=== PATIENT | female | born 1930 | race Caucasian/White ===

== ENCOUNTER 2016-11-22 21:02 | Observation (INO) | payer BC ==
[~2016-11-22] VITALS: Ht 147.3 cm; Wt 72.2 kg
[2016-11-22] MEDS ORDERED: SODIUM CHLORIDE 0.9% 500ML 500 ML IV STA (21:07)
[2016-11-22 21:17] LABS: BASO % 0.6 %; BASO ABS # 0.03 K/uL (0-0.2); COMPLETE YES; EOS % 1.9 %; HEMATOCRIT 40.9 % (37-47); IG% 0.2 %; LYMPH % 44.3 %; LYMPH ABS # 2.15 K/uL (1.2-3.4); MEAN CELL VOLUME 98.1 fL (80-100); MEAN CORPUSCULAR HEMOGLOBIN 34.8 pg (25-34); MEAN CORPUSCULAR HGB CONC 35.5 g/dl (32-36); MEAN PLATELET VOLUME 10.4 fL (7.4-10.4); MONO % 12.8 %; NEUT % 40.2 %; PLATELET COUNT 193 K/uL (130-400); RED BLOOD COUNT 4.17 M/uL (4.2-5.4); WHITE BLOOD COUNT 4.85 K/uL (4.8-10.8)
--- NOTE | 2016-11-22 21:28 | EMERGENCY ROOM VISIT NOTE ---
History Report prepared by Lance: Lisseth Jones Under the Supervision of: Dr. Radhames Steward M.D. First contact with patient: 21:07 Stated Complaint: CHEST DISCOMFORT/HEADACHE History of Present Illness The patient is an 86 year old female who presents to the Emergency Room with complaints of a headache that started earlier today. She was brought to the ED via EMS and is visiting the area from [place], for a golf tournament. The patient reports she played 36 holes of golf, then went to eat dinner at the [employer], where her headache worsened. She rates her current discomfort as a 7/10. The patient also reports a "feeling of warmth" that came across her chest while she was in the hotel lobby this evening. She denies any chest pain or shortness of breath and states the feeling of warmth has gone away. She reports she experiences headaches regularly, and states she has followed with Neurologists and Cardiologists and they cannot determine the cause of her headaches. She admits she only ate breakfast this morning, then nothing for lunch or dinner. She reports she drank Pepsi and 2 bottles of water while playing today. She does take daily blood thinners. Source of History: patient Onset: ROAD MENDER Position: head Symptom Intensity: 7/10 Timing: worsening Associated Symptoms: No SOB, No chest pain Review of Systems See HPI for pertinent positives & negatives. A total of 10 systems reviewed and were otherwise negative. Past Medical & Surgical Medical Problems: (1) Burning chest pain (2) Chronic headaches (3) GERD (gastroesophageal reflux disease) (4) Hyperlipemia (5) Hypertension (6) Seasonal allergies Social History Alcohol Use: occasionally Drug Use: none Marital Status: Housing Status: lives with family Occupation Status: retired Current/Historical Medications Scheduled Amlodipine (Norvasc), 2.5 MG PO DAILY Aspirin (Aspirin Ec), 81 MG PO DAILY Cholecalciferol (Vitamin D), 2,000 UNITS PO DAILY Famotidine (Pepcid), 40 MG PO DAILY Irbesartan (Avapro), 150 MG PO DAILY Magnesium (Magnesium 250 mg), 250 MG PO DAILY Multivitamins/Minerals (Mvi With Minerals), 1 TAB PO DAILY Pravastatin Sodium (Pravachol), 1 TAB PO DAILY Riboflavin (B-2), 1 TAB PO DAILY Warfarin Sodium (Coumadin), 4 MG PO 3XWK Warfarin Sodium (Coumadin), 3 MG PO 4XWK Scheduled PRN Cetirizine Hcl (Zyrtec), 10 MG PO DAILY PRN for ALLERGIC REACTION Lorazepam (Ativan), 0.5 MG PO HS PRN for Sleep Allergies Coded Allergies: Adhesives (Verified Allergy, Intermediate, RED SKIN, 11/22/16) Enoxaparin (Verified Adverse Reaction, Severe, ABD HEMMORAGE, 11/22/16) Physical Exam Vital Signs Date Time Temp Pulse Resp B/P Pulse Ox O2 Delivery O2 Flow Rate FiO2 11/22/16 22:35 98 191/84 97 Room Air 11/22/16 22:10 88 20 190/72 97 Room Air 11/22/16 21:36 92 11/22/16 21:13 36.7 89 20 178/77 97 Room Air 11/22/16 21:13 97 Room Air Physical Exam GENERAL: Patient is a healthy-appearing well-nourished HEAD: Normocephalic atraumatic EYES: Ocular movements intact pupils equal and react to light OROPHARYNX mucous membranes are moist no exudates present no erythema or edema present NECK: Supple no nuchal rigidity. No evidence of meningitis or encephalitis on exam. CHEST: Good equal expansion LUNGS: Clear and equal to auscultation CARDIAC: Normal S1 and S2 ABDOMEN: Soft nontender no guarding BACK: No CVA tenderness EXTREMITIES: No pain upon palpation normal muscle strength in all groups no clubbing cyanosis or edema NEURO: Patient is following commands is answering questions appropriately. Alert and oriented x3 Cranial Nerves 2-12 grossly intact Medical Decision & Procedures ER Provider Diagnostic Interpretation: This X-Ray was reviewed and interpreted by myself and the radiologist. CHEST ONE VIEW PORTABLE IMPRESSION: No acute cardiopulmonary findings. Electronically signed by: Jc Bean M.D. 11/22/2016 9:27 PM Laboratory Results 11/22/16 20:47 Red Blood Count 4.17, Mean Corpuscular Volume 98.1, Mean Corpuscular Hemoglobin 34.8, Mean Corpuscular Hemoglobin Concent 35.5, Mean Platelet Volume 10.4, Neutrophils (%) (Auto) 40.2, Lymphocytes (%) (Auto) 44.3, Monocytes (%) (Auto) 12.8, Eosinophils (%) (Auto) 1.9, Basophils (%) (Auto) 0.6, Neutrophils # (Auto ) 1.95, Lymphocytes # (Auto) 2.15, Monocytes # (Auto) 0.62, Eosinophils # (Auto ) 0.09, Basophils # (Auto) 0.03 11/22/16 20:47 Test 11/22/16 20:47 11/22/16 21:35 White Blood Count 4.85 K/uL (4.8-10.8) Red Blood Count 4.17 M/uL (4.2-5.4) Hemoglobin 14.5 g/dL (12.0-16.0) Hematocrit 40.9 % (37-47) Mean Corpuscular Volume 98.1 fL (80-100) Mean Corpuscular Hemoglobin 34.8 pg (25-34) Mean Corpuscular Hemoglobin Concent 35.5 g/dl (32-36) Platelet Count 193 K/uL (130-400) Mean Platelet Volume 10.4 fL (7.4-10.4) Neutrophils (%) (Auto) 40.2 % Lymphocytes (%) (Auto) 44.3 % Monocytes (%) (Auto) 12.8 % Eosinophils (%) (Auto) 1.9 % Basophils (%) (Auto) 0.6 % Neutrophils # (Auto) 1.95 K/uL (1.4-6.5) Lymphocytes # (Auto) 2.15 K/uL (1.2-3.4) Monocytes # (Auto) 0.62 K/uL (0.11-0.59) Eosinophils # (Auto) 0.09 K/uL (0-0.5) Basophils # (Auto) 0.03 K/uL (0-0.2) RDW Standard Deviation 48.1 fL (36.4-46.3) RDW Coefficient of Variation 13.6 % (11.5-14.5) Immature Granulocyte % (Auto) 0.2 % Immature Granulocyte # (Auto) 0.01 K/uL (0.00-0.02) Prothrombin Time 16.4 SECONDS (9.0-12.0) Prothromb Time International Ratio 1.5 (0.9-1.1) Activated Partial Thromboplast Time 31.5 SECONDS (21.0-31.0) Partial Thromboplastin Ratio 1.2 Anion Gap 11.0 mmol/L (3-11) Est Creatinine Clear Calc Drug Dose 41.8 ml/min Estimated GFR () 73.5 Estimated GFR (Non- 63.4 BUN/Creatinine Ratio 18.0 (10-20) Calcium Level 9.5 mg/dl (8.5-10.1) Total Bilirubin 0.5 mg/dl (0.2-1) Direct Bilirubin < 0.1 mg/dl (0-0.2) Aspartate Amino Transf (AST/SGOT) 26 U/L (15-37) Alanine Aminotransferase (ALT/SGPT) 43 U/L (12-78) Alkaline Phosphatase 136 U/L (45-117) Total Creatine Kinase 188 U/L (26-192) Creatine Kinase MB 3.5 ng/ml (0.5-3.6) Creatine Kinase MB Ratio 1.9 (0-3.0) Troponin I < 0.015 ng/ml (0-0.045) Total Protein 7.7 gm/dl (6.4-8.2) Albumin 4.3 gm/dl (3.4-5.0) Lipase 222 U/L (73-393) Thyroid Stimulating Hormone (TSH) 1.020 uIu/ml (0.300-4.500) Urine Color YELLOW Urine Appearance CLEAR (CLEAR) Urine pH 5.0 (4.5-7.5) Urine Specific [place] 1.009 (1.000-1.030) Urine Protein NEG (NEG) Urine Glucose (UA) 1+ (NEG) Urine Ketones NEG (NEG) Urine Occult Blood NEG (NEG) Urine Nitrite NEG (NEG) Urine Bilirubin NEG (NEG) Urine Urobilinogen NEG (NEG) Urine Leukocyte Esterase TRACE (NEG) Urine WBC (Auto) 1-5 /hpf (0-5) Urine RBC (Auto) 0-4 /hpf (0-4) Urine Hyaline Casts (Auto) 0 /lpf (0-5) Urine Epithelial Cells (Auto) 10-20 /lpf (0-5) Urine Bacteria (Auto) NEG (NEG) Labs reviewed by ED physician. Medications Administered Medications (Trade) Dose Ordered Sig/Marie Route Start Time Stop Time Status Last Admin Dose Admin Sodium Chloride (Nss 500ml) 500 ml @ 999 mls/hr Q31M STAT IV 11/22/16 21:07 11/22/16 21:37 DC 11/22/16 21:00 999 MLS/HR Acetaminophen (Tylenol Tab) 1,000 mg NOW STAT PO 11/22/16 22:02 11/22/16 22:04 DC 11/22/16 22:09 1,000 MG Lisinopril (Zestril Tab) 5 mg NOW STAT PO 11/22/16 22:57 11/22/16 23:00 DC 11/22/16 23:14 5 MG ECG Indication: chest pain Rate (beats per minute): 87 Rhythm: sinus rhythm Findings: PVC, no acute ischemic change, other (old inferior infarct) Comparison ECG Date: no prior available ED Course 2106: NSS 500 ml @ 999 mls/hr IV. 2109: Past medical records reviewed. The patient was evaluated in room A3. A complete history and physical examination was performed. 2199: I reevaluated the patient. She is resting comfortably. I recommended we do a CT scan of her head, but she declines. She states she has had numerous CT scans performed in the past by her doctors at home. 3: Morphine Sulfate 2 mg IV, Acetaminophen 1000 mg PO. 2245: I reevaluated the patient. I discussed my recommendation that she remain in the hospital for further evaluation and management. The patient agrees and states she does not feel comfortable going home. 2257: Lisinopril 5 mg PO, Benadryl 25 mg IV, Compazine 5 mg IV, Magnesium Sulfate 1 gm IV, Morphine Sulfate 2 mg IV. 2258: I discussed the patients case with Dr. Arroyo, [facility]. The patient will be further evaluated. Medical Decision Prior records/ancillary studies reviewed and summarized above. Nursing notes reviewed. Additional history obtained from the patients family. The patient's history was concerning for weakness. Differential diagnosis: Etiologies such as metabolic, infection, hypo/hyperglycemia, electrolyte abnormalities, cardiac sources, intracerebral event, toxicologic, neurologic, as well as others were entertained. This is an 86-year-old female who presents emergency department after not eating today and being out on a golf [place] all day. The patient tried to make it to dinner tonight however at dinner began complaining of a warm sensation along with head pressure. The patient reports she has had this pressure for some time and has been worked up by numerous physicians including a filtration plant mechanic and neurologist. I offered to do a CAT scan of the head however the patient refuses this. She was given Tylenol as well as morphine for the pain in the emergency department however the patient refused her morphine. She has a normal CBC normal renal profile normal liver profile normal lipase. The patient does not appear to have any urinary tract infection. I will note the patient's blood pressure is grossly elevated. I gave the patient the option of being discharged home to follow-up with her primary care physician however the patient feels too weak I would like to be admitted. I did discuss the case with the hospitalist service who agreed to admit the patient. The patient was given lisinopril in the emergency department and I attempted to treat the patient's head pressure as a migraine headache however the patient refused all of her medication. Consults Time Called: [phone] Consulting Physician: Brian Walton Hospitalist Returned Call: [phone] [facility] The patient will be further evaluated. Impression Primary Impression: Headache Additional Impression: Hypertension Scribe Attestation The scribe's documentation has been prepared under my direction and personally reviewed by me in its entirety. I confirm that the note above accurately reflects all work, treatment, procedures, and medical decision making performed by me. Departure Information Dispostion Being Evaluated By Hospitalist Referrals No Doctor, Assigned (PCP) Problem Qualifiers Primary Impression: Headache Headache type: unspecified Headache chronicity pattern: chronic headache Intractability: intractable Qualified Codes: R51 - Headache Additional Impression: Hypertension Hypertension type: unspecified secondary hypertension Qualified Codes: I15.9 - Secondary hypertension, unspecified
--- NOTE | 2016-11-22 21:29 | DIAGNOSTIC IMAGING REPORT ---
CHEST ONE VIEW PORTABLE CLINICAL HISTORY: Severe hypertension. COMPARISON STUDY: No previous studies for comparison. FINDINGS: An electronic device projects over the left hemithorax. There is mild cardiomegaly. There is no evidence of pulmonary edema. No pneumothorax or pleural effusion is present. There is no consolidation to suggest pneumonia. IMPRESSION: No acute cardiopulmonary findings. Electronically signed by: Jc Bean M.D. 11/22/2016 9:27 PM Dictated Date/Time: 11/22/2016 9:25 PM
[2016-11-22 21:30] LABS: INR 1.5 (0.9-1.1); PARTIAL THROMBOPLASTIN RATIO 1.2; PROTHROMBIN TIME (PATIENT) 16.4 SECONDS (9.0-12.0)
[2016-11-22 21:33] LABS: ALT/SGPT 43 U/L (12-78); BLOOD UREA NITROGEN 15 mg/dl (7-18); CARBON DIOXIDE 24 mmol/L (21-32); CHLORIDE 104 mmol/L (98-107); CREATININE 0.84 mg/dl (0.60-1.20); GLUCOSE 146 mg/dl (70-99); POTASSIUM 3.7 mmol/L (3.5-5.1); SODIUM 139 mmol/L (136-145)
[2016-11-22 21:44] LABS: ALKALINE PHOSPHATASE 136 U/L (45-117); AST/SGOT 26 U/L (15-37); CKMB/CK RATIO 1.9 (0-3.0)
[2016-11-22] MEDS ORDERED: AMLO2.5T PO (21:48)
[2016-11-22] MEDS ORDERED: WARF2TAB PO ×2 (21:48)
[2016-11-22] MEDS ORDERED: CHOL200010 PO (21:48)
[2016-11-22] MEDS ORDERED: ASPI81TA28 PO (21:48)
[2016-11-22] MEDS ORDERED: RIBO50TA4 PO (21:48)
[2016-11-22] MEDS ORDERED: FAMO40TA6 PO (21:48)
[2016-11-22] MEDS ORDERED: IRBE-37 PO (21:48)
[2016-11-22] MEDS ORDERED: LORA-741 PO (21:48)
[2016-11-22] MEDS ORDERED: MULT-513 PO (21:48)
[2016-11-22] MEDS ORDERED: MAGN250T3 PO (21:48)
[2016-11-22] MEDS ORDERED: PRAV40TA PO (21:48)
[2016-11-22] MEDS ORDERED: CETI10TA10 PO (21:48)
[2016-11-22 22:01] LABS: URINE APPEARANCE CLEAR (CLEAR); URINE BILIRUBIN NEG (NEG); URINE COLOR YELLOW; URINE NITRITE NEG (NEG); URINE SPECIFIC GRAVITY 1.009 (1.000-1.030); UROBILINOGEN NEG (NEG)
[2016-11-22] MEDS ORDERED: ACETAMINOPHEN 500 MG TAB PO STA (22:02)
[2016-11-22] MEDS ORDERED: MoRPHine SULFATE 4 MG/ML 1 ML CARP\\VIAL IV STA ×2 (22:02→22:57)
[2016-11-22 22:03] LABS: MANUAL MICROSCOPIC REQUIRED? NO; REVIEW REQ? NO
[2016-11-22 22:10] LABS: CALCIUM 9.5 mg/dl (8.5-10.1)
[2016-11-22] MEDS ORDERED: MoRPHine SULFATE 2 MG/ML CARP ONE (22:12)
[2016-11-22] MEDS ORDERED: PROCHLORPERAZINE 5 MG/ML 2 ML VIAL IV STA (22:57)
[2016-11-22] MEDS ORDERED: MAGNESIUM SULFATE 1GM / D5W 1 GM BAG IV STA (22:57)
[2016-11-22] MEDS ORDERED: DiphenhydrAMINE HCL 50 MG/ML VIAL IV STA (22:57)
[2016-11-22] MEDS ORDERED: LISINOPRIL 5 MG TAB PO STA (22:57)
[2016-11-22] MEDS ORDERED: ACETAMINOPHEN 325 MG TAB PO PRN (23:45)
[2016-11-22] MEDS ORDERED: IV FLUIDS COMPLETED PRN (23:45)
[2016-11-22] MEDS ORDERED: NITROGLYCERIN 0.4 MG SL PER TAB CHARGE SL PRN (23:45)
[2016-11-22] MEDS ORDERED: CETIRIZINE HCL 10 MG TAB PO PRN (23:45)
[2016-11-23] VITALS (11 sets, daily range): BP systolic 106–177; BP diastolic 47–75; PULSE 66–90; TEMP 36.4–36.8; O2SAT 95–98; Ht 147.3 cm; Wt 72.2 kg
[2016-11-23] MEDS ORDERED: WARFARIN SOD 3 MG TAB PO ONE (00:45)
--- NOTE | 2016-11-23 01:02 | History and Physical ---
History & Physical Date & Time of Service: Nov 22, 2016 at 23:37 Chief Complaint: Chest Discomfort/Headache Primary Care Physician: [place] M.D. History of Present Illness Source: patient, family, clinic records, hospital records 86 year old female with PMH of Paroxysmal Afib on coumadin, CAD, Dyslipidemia, HTN, Carotid artery disease was brought to the ER by EMS with complaints of a headache that started earlier today. Pt is from [facility], she came to [place] for a golf tournament. She said that she played 36 holes of golf today. She said that later her headache got worst. she describes the headache like a pressure located in her frontal area. grade 7/10. she said that she does have a history of headache and she follow with neurology. she said that she had so many CT and MRI of the head done in the past that were negative. She does not want to get any more imaging of the head. She also feels a burning feeling across her chest area early today that resolved. Pt recently saw her PCP for the similar symptoms (pressure headache and chest discomfort) few days ago. She is scheduled for a nuclear stress test and an echo on the 12/02. When she came her blood pressure was elevated. Currently she denies any chest pain, palpitation, blurry vision and SOB. Past Medical/Surgical History Paroxysmal Afib, CAD, Dyslipidemia, HTN, Carotid artery disease, Dizziness, Chronic fatigue Social History Smoking Status: Never Smoker Drug Use: none Marital Status: Occupational Status: retired Allergies Coded Allergies: Adhesives (Verified Allergy, Intermediate, RED SKIN, 11/22/16) Enoxaparin (Verified Adverse Reaction, Severe, ABD HEMMORAGE, 11/22/16) Home Medications Scheduled Amlodipine (Norvasc), 2.5 MG PO DAILY Aspirin (Aspirin Ec), 81 MG PO DAILY Cholecalciferol (Vitamin D), 2,000 UNITS PO DAILY Famotidine (Pepcid), 40 MG PO DAILY Irbesartan (Avapro), 150 MG PO DAILY Magnesium (Magnesium 250 mg), 250 MG PO DAILY Multivitamins/Minerals (Mvi With Minerals), 1 TAB PO DAILY Pravastatin Sodium (Pravachol), 1 TAB PO DAILY Riboflavin (B-2), 1 TAB PO DAILY Warfarin Sodium (Coumadin), 4 MG PO 3XWK Warfarin Sodium (Coumadin), 3 MG PO 4XWK Scheduled PRN Cetirizine Hcl (Zyrtec), 10 MG PO DAILY PRN for ALLERGIC REACTION Lorazepam (Ativan), 0.5 MG PO HS PRN for Sleep Review of Systems Constitutional: No chills, No fever, No sweats Eyes: No discharge, No eye pain, No redness ENT: No nasal symptoms, No sore throat, No unusual epistaxis Respiratory: No cough, No shortness of breath, No sputum Cardiovascular: + problem reported (Burning sensation accross the chest area), No orthopnea, No palpitations Abdomen: No diarrhea, No nausea, No pain, No vomiting Musculoskeletal: No calf pain, No swelling Genitourinary - Female: + urinary frequency, + urinary urgency, No dysuria Neurologic: No memory loss, No paralysis Psychiatric: No substance abuse Endocrine: No excessive thirst Hematologic / Lymphatic: No night sweats Integumentary: No itch, No rash Physical Exam Vital Signs Date Time Temp Pulse Resp B/P Pulse Ox O2 Delivery O2 Flow Rate FiO2 11/22/16 22:35 98 191/84 97 Room Air 11/22/16 22:10 88 20 190/72 97 Room Air 11/22/16 21:36 92 11/22/16 21:13 36.7 89 20 178/77 97 Room Air 11/22/16 21:13 97 Room Air General Appearance: WD/WN, no apparent distress Head: normocephalic, atraumatic Eyes: normal inspection, PERRL, EOMI, sclerae normal ENT: normal ENT inspection, hearing grossly normal Neck: supple, no JVD Respiratory/Chest: lungs clear, normal breath sounds, no respiratory distress, no accessory muscle use Cardiovascular: regular rate, rhythm, no edema, no murmur Abdomen/GI: normal bowel sounds, non tender, soft Back: normal inspection, no CVA tenderness Extremities/Musculoskelatal: normal inspection, no calf tenderness, no pedal edema Neurologic/Psych: shaft headman II-XII nml as tested, no motor/sensory deficits, alert, normal mood/affect, oriented x 3 Skin: normal color, warm/dry, no rash Diagnostics Laboratory Results Results Past 24 Hours Test 11/22/16 20:47 11/22/16 21:35 Range/Units White Blood Count 4.85 4.8-10.8 K/uL Red Blood Count 4.17 4.2-5.4 M/uL Hemoglobin 14.5 12.0-16.0 g/dL Hematocrit 40.9 37-47 % Mean Corpuscular Volume 98.1 80-100 fL Mean Corpuscular Hemoglobin 34.8 25-34 pg Mean Corpuscular Hemoglobin Concent 35.5 32-36 g/dl Platelet Count 193 130-400 K/uL Mean Platelet Volume 10.4 7.4-10.4 fL Neutrophils (%) (Auto) 40.2 % Lymphocytes (%) (Auto) 44.3 % Monocytes (%) (Auto) 12.8 % Eosinophils (%) (Auto) 1.9 % Basophils (%) (Auto) 0.6 % Neutrophils # (Auto) 1.95 1.4-6.5 K/uL Lymphocytes # (Auto) 2.15 1.2-3.4 K/uL Monocytes # (Auto) 0.62 0.11-0.59 K/uL Eosinophils # (Auto) 0.09 0-0.5 K/uL Basophils # (Auto) 0.03 0-0.2 K/uL RDW Standard Deviation 48.1 36.4-46.3 fL RDW Coefficient of Variation 13.6 11.5-14.5 % Immature Granulocyte % (Auto) 0.2 % Immature Granulocyte # (Auto) 0.01 0.00-0.02 K/uL Prothrombin Time 16.4 9.0-12.0 SECONDS Prothromb Time International Ratio 1.5 0.9-1.1 Activated Partial Thromboplast Time 31.5 21.0-31.0 SECONDS Partial Thromboplastin Ratio 1.2 Sodium Level 139 136-145 mmol/L Potassium Level 3.7 3.5-5.1 mmol/L Chloride Level 104 98-107 mmol/L Carbon Dioxide Level 24 21-32 mmol/L Anion Gap 11.0 3-11 mmol/L Blood Urea Nitrogen 15 7-18 mg/dl Creatinine 0.84 0.60-1.20 mg/dl Est Creatinine Clear Calc Drug Dose 41.8 ml/min Estimated GFR () 73.5 Estimated GFR (Non- 63.4 BUN/Creatinine Ratio 18.0 10-20 Random Glucose 146 70-99 mg/dl Calcium Level 9.5 8.5-10.1 mg/dl Total Bilirubin 0.5 0.2-1 mg/dl Direct Bilirubin < 0.1 0-0.2 mg/dl Aspartate Amino Transf (AST/SGOT) 26 15-37 U/L Alanine Aminotransferase (ALT/SGPT) 43 12-78 U/L Alkaline Phosphatase 136 45-117 U/L Total Creatine Kinase 188 26-192 U/L Creatine Kinase MB 3.5 0.5-3.6 ng/ml Creatine Kinase MB Ratio 1.9 0-3.0 Troponin I < 0.015 0-0.045 ng/ml Total Protein 7.7 6.4-8.2 gm/dl Albumin 4.3 3.4-5.0 gm/dl Lipase 222 73-393 U/L Thyroid Stimulating Hormone (TSH) 1.020 0.300-4.500 uIu/ml Urine Color YELLOW Urine Appearance CLEAR CLEAR Urine pH 5.0 4.5-7.5 Urine Specific [place] 1.009 1.000-1.030 Urine Protein NEG NEG Urine Glucose (UA) 1+ NEG Urine Ketones NEG NEG Urine Occult Blood NEG NEG Urine Nitrite NEG NEG Urine Bilirubin NEG NEG Urine Urobilinogen NEG NEG Urine Leukocyte Esterase TRACE NEG Urine WBC (Auto) 1-5 0-5 /hpf Urine RBC (Auto) 0-4 0-4 /hpf Urine Hyaline Casts (Auto) 0 0-5 /lpf Urine Epithelial Cells (Auto) 10-20 0-5 /lpf Urine Bacteria (Auto) NEG NEG Diagnostic Radiology CHEST ONE VIEW PORTABLE CLINICAL HISTORY: Severe hypertension. COMPARISON STUDY: No previous studies for comparison. FINDINGS: An electronic device projects over the left hemithorax. There is mild cardiomegaly. There is no evidence of pulmonary edema. No pneumothorax or pleural effusion is present. There is no consolidation to suggest pneumonia. IMPRESSION: No acute cardiopulmonary findings. Electronically signed by: Jc Bean M.D. 11/22/2016 9:27 PM Dictated Date/Time: 11/22/2016 9:25 PM Impression Assessment and Plan Headache History of chronic headache with multiples MRI and CT head done in the past. Does not want to get any head imaging at this time If headache worsening or if she develops any focal neuro deficit, she agrees to get CT head. Continue magnesium and riboflavin will do tylenol and tramadol prn for severe headache will monitor closely HTN BP elevated received lisinopril 5 mg in the ER Continue amlodipine and avapro Might need to adjust BP med will add low dose labetalol prn for SBP above 165 P. Afib rate controlled and on SNR On coumadin, INR 1.5 check INR in am Coumadin 3 mg given tonight Chest Discomfort feeling a burning sensation in her chest 1st set of troponin is negative EKG showed PVC, with no significant ST changes Repeat EKG in am and follow 2 more set of CM Since pt is scheduled for an echo on 12/02, will get echo while in the hospital Continue aspirin 81 mg Will monitor in Telemetry Dyslipidemia Continue statin Elevated glucose will check hba1c, repeat bmp in am Left carotid artery disease Stable DVT px on coumadin INR is 1.5 (subtherapeutic) SCDs CODE STATUS FULL CODE Level of Care Telemetry Resuscitation Status FULL RESUSCITATION VTE Prophylaxis VTE Risk Assessment Done? Y/N: Yes Risk Level: Moderate Given or contraindicated: Warfarin (Coumadin), SCD's
[2016-11-23 02:51] LABS: INR 1.7 (0.9-1.1); PROTHROMBIN TIME (PATIENT) 18.6 SECONDS (9.0-12.0)
[2016-11-23 03:01] LABS: BLOOD UREA NITROGEN 13 mg/dl (7-18); CALCIUM 8.7 mg/dl (8.5-10.1); CARBON DIOXIDE 25 mmol/L (21-32); CHLORIDE 109 mmol/L (98-107); CREATININE 0.69 mg/dl (0.60-1.20); GLUCOSE 90 mg/dl (70-99); POTASSIUM 3.9 mmol/L (3.5-5.1); SODIUM 142 mmol/L (136-145)
[2016-11-23] MEDS: LABETALOL HCL IV 5 MG/ML 20ML IV PRN (03:17)
[2016-11-23] MEDS: LORAZEPAM 0.5 MG TAB PO PRN ×2 (03:23→23:19)
[2016-11-23] MEDS ORDERED: PERFLUTREN LIPID MICROSPHERE (DEFINITY) IV ONE (07:46)
[2016-11-23 08:45] LABS: HEMATOCRIT 37.6 % (37-47); MEAN CELL VOLUME 97.2 fL (80-100); MEAN CORPUSCULAR HEMOGLOBIN 34.1 pg (25-34); MEAN CORPUSCULAR HGB CONC 35.1 g/dl (32-36); MEAN PLATELET VOLUME 10.8 fL (7.4-10.4); PLATELET COUNT 179 K/uL (130-400); RED BLOOD COUNT 3.87 M/uL (4.2-5.4); WHITE BLOOD COUNT 3.69 K/uL (4.8-10.8)
[2016-11-23 08:52] LABS: INR 1.7 (0.9-1.1); PROTHROMBIN TIME (PATIENT) 18.5 SECONDS (9.0-12.0)
[2016-11-23] MEDS: PRAVASTATIN SOD 40 MG TAB PO SCH ×2 (08:58→09:00)
[2016-11-23] MEDS: FAMOTIDINE 20 MG TAB PO SCH (08:59)
[2016-11-23] MEDS: IRBESARTAN 150 MG TAB PO SCH ×2 (08:59→09:00)
[2016-11-23] MEDS: CHOLECALCIFEROL 1000 INTER.UNIT TAB PO SCH (08:59)
[2016-11-23] MEDS: AMLODIPINE BESYLATE 5 MG TAB PO SCH (08:59)
[2016-11-23] MEDS ORDERED: ASPIRIN 81 MG ECTAB PO SCH (09:00)
[2016-11-23] MEDS: ASPIRIN 81 MG ECTAB PO SCH (09:00)
[2016-11-23] MEDS: MAGNESIUM OXIDE 400 MG TAB PO SCH (09:00)
[2016-11-23] MEDS ORDERED: HEPARIN SOD 5000 UNIT/0.5 ML CARP SQ SCH (09:00)
[2016-11-23] MEDS ORDERED: RIBOFLAVIN PO SCH (09:00)
--- NOTE | 2016-11-23 10:02 | Progress Note ---
Internal Med Progress Note Date of Service: Nov 23, 2016. Provider Documentation: SUBJECTIVE: Patient is seen and examine at bedside. States Headache is much better, has chronic dizziness. Denies any chest pain, SOB, palpitations, blurry vision, vertigo. Offers no other symptoms. OBJECTIVE: Vital Signs-as noted below Physical Exam: General Appearance:Moderately built and nourished, no apparent distress Head: normocephalic, Atraumatic Eyes: normal inspection, EOMI, PERRLA Neck: supple, Trachea midline Respiratory/Chest: Normal breath sounds, CTA Cardiovascular: S1, S2, No murmur Abdomen/GI:Soft, Non tender, Bowel sounds present Extremities/Musculoskelatal:normal inspection, Trace edema Neurologic/Psych:AAOX3, grossly no focal neurological deficits Skin: normal color, warm Lab data as noted below. ASSESSMENT & PLAN: CHRONIC RECURRENT HEADACHE H/o of chronic headache with multiples MRI and CT head done in the past Had LP at [place] as well. DD: Vestibular headache/ Mnire's disease/ Tension headache/Secondary to uncontrolled HTN Denies to have further imaging during this admission but agreeable if Headache worsens Continue magnesium and riboflavin Tylenol PRN Follow with neurologist as outpatient States headache is better currently Check ESR monitor HTN Uncontrolled, Likely situational Currently BP better Continue amlodipine and avapro Monitor BP Will plan to increase Amlodipine to 5mg if worsens On labetalol PRN P. AFIB Rate controlled, currently in sinus INR subtherapeutic INR: 1.7 today Continue Coumadin CHEST DISCOMFORT Presented with self limiting burning sensation in her chest Troponin X2: negative EKG: PVCs on intial EKG, resolved on repeat ECHO:pending Continue aspirin 81 mg Currently denies chest discomfort Dyslipidemia Continue statin Elevated glucose A1C:pending LEFT CAROTID ARTERY DISEASE Stable DVT Px: On coumadin SCDs CODE STATUS: FULL CODE DISPOSITION: Continue monitoring in tele Vital Signs: Date Time Temp Pulse Resp B/P Pulse Ox O2 Delivery O2 Flow Rate FiO2 11/23/16 04:14 36.6 74 16 130/63 96 Room Air 11/23/16 04:00 Room Air 11/23/16 02:45 177/69 11/23/16 00:30 36.6 90 20 168/75 97 Room Air 11/23/16 00:05 90 20 173/87 94 11/22/16 22:35 98 191/84 97 Room Air 11/22/16 22:10 88 20 190/72 97 Room Air 11/22/16 21:36 92 11/22/16 21:13 36.7 89 20 178/77 97 Room Air 11/22/16 21:13 97 Room Air Lab Results: Results Past 24 Hours Test 11/22/16 20:47 11/22/16 21:35 11/23/16 02:30 11/23/16 02:35 Range/Units White Blood Count 4.85 4.8-10.8 K/uL Red Blood Count 4.17 4.2-5.4 M/uL Hemoglobin 14.5 12.0-16.0 g/dL Hematocrit 40.9 37-47 % Mean Corpuscular Volume 98.1 80-100 fL Mean Corpuscular Hemoglobin 34.8 25-34 pg Mean Corpuscular Hemoglobin Concent 35.5 32-36 g/dl Platelet Count 193 130-400 K/uL Mean Platelet Volume 10.4 7.4-10.4 fL Neutrophils (%) (Auto) 40.2 % Lymphocytes (%) (Auto) 44.3 % Monocytes (%) (Auto) 12.8 % Eosinophils (%) (Auto) 1.9 % Basophils (%) (Auto) 0.6 % Neutrophils # (Auto) 1.95 1.4-6.5 K/uL Lymphocytes # (Auto) 2.15 1.2-3.4 K/uL Monocytes # (Auto) 0.62 0.11-0.59 K/uL Eosinophils # (Auto) 0.09 0-0.5 K/uL Basophils # (Auto) 0.03 0-0.2 K/uL RDW Standard Deviation 48.1 36.4-46.3 fL RDW Coefficient of Variation 13.6 11.5-14.5 % Immature Granulocyte % (Auto) 0.2 % Immature Granulocyte # (Auto) 0.01 0.00-0.02 K/uL Prothrombin Time 16.4 18.6 9.0-12.0 SECONDS Prothromb Time International Ratio 1.5 1.7 0.9-1.1 Activated Partial Thromboplast Time 31.5 21.0-31.0 SECONDS Partial Thromboplastin Ratio 1.2 Sodium Level 139 142 136-145 mmol/L Potassium Level 3.7 3.9 3.5-5.1 mmol/L Chloride Level 104 109 98-107 mmol/L Carbon Dioxide Level 24 25 21-32 mmol/L Anion Gap 11.0 8.0 3-11 mmol/L Blood Urea Nitrogen 15 13 7-18 mg/dl Creatinine 0.84 0.69 0.60-1.20 mg/dl Est Creatinine Clear Calc Drug Dose 41.8 49.9 ml/min Estimated GFR () 73.5 92.0 Estimated GFR (Non- 63.4 79.4 BUN/Creatinine Ratio 18.0 19.0 10-20 Random Glucose 146 90 70-99 mg/dl Calcium Level 9.5 8.7 8.5-10.1 mg/dl Total Bilirubin 0.5 0.2-1 mg/dl Direct Bilirubin < 0.1 0-0.2 mg/dl Aspartate Amino Transf (AST/SGOT) 26 15-37 U/L Alanine Aminotransferase (ALT/SGPT) 43 12-78 U/L Alkaline Phosphatase 136 45-117 U/L Total Creatine Kinase 188 26-192 U/L Creatine Kinase MB 3.5 3.8 0.5-3.6 ng/ml Creatine Kinase MB Ratio 1.9 0-3.0 Troponin I < 0.015 < 0.015 0-0.045 ng/ml Total Protein 7.7 6.4-8.2 gm/dl Albumin 4.3 3.4-5.0 gm/dl Lipase 222 73-393 U/L Thyroid Stimulating Hormone (TSH) 1.020 0.300-4.500 uIu/ml Urine Color YELLOW Urine Appearance CLEAR CLEAR Urine pH 5.0 4.5-7.5 Urine Specific [place] 1.009 1.000-1.030 Urine Protein NEG NEG Urine Glucose (UA) 1+ NEG Urine Ketones NEG NEG Urine Occult Blood NEG NEG Urine Nitrite NEG NEG Urine Bilirubin NEG NEG Urine Urobilinogen NEG NEG Urine Leukocyte Esterase TRACE NEG Urine WBC (Auto) 1-5 0-5 /hpf Urine RBC (Auto) 0-4 0-4 /hpf Urine Hyaline Casts (Auto) 0 0-5 /lpf Urine Epithelial Cells (Auto) 10-20 0-5 /lpf Urine Bacteria (Auto) NEG NEG Test 11/23/16 08:26 11/23/16 08:30 Range/Units White Blood Count 3.69 4.8-10.8 K/uL Red Blood Count 3.87 4.2-5.4 M/uL Hemoglobin 13.2 12.0-16.0 g/dL Hematocrit 37.6 37-47 % Mean Corpuscular Volume 97.2 80-100 fL Mean Corpuscular Hemoglobin 34.1 25-34 pg Mean Corpuscular Hemoglobin Concent 35.1 32-36 g/dl RDW Standard Deviation 48.1 36.4-46.3 fL RDW Coefficient of Variation 13.6 11.5-14.5 % Platelet Count 179 130-400 K/uL Mean Platelet Volume 10.8 7.4-10.4 fL Prothrombin Time 18.5 9.0-12.0 SECONDS Prothromb Time International Ratio 1.7 0.9-1.1 Creatine Kinase MB 3.2 0.5-3.6 ng/ml Troponin I < 0.015 0-0.045 ng/ml Creatine Kinase MB Ratio 0-3.0
--- NOTE | 2016-11-23 15:12 | ECHOCARDIOGRAM REPORT ---
*NOTICE TO RECEIVING LIBERTARIAN AGENCY This information is strictly Confidential and protected under [place] law. [place] law prohibits you from making any further disclosure of this information unless further disclosure is expressly permitted by the written consent of the person to whom it pertains or is authorized by law. A general authorization for the release of medical or other information is not sufficient for this purpose. Hospital accepts no responsibility if the information is made available to any other person, INCLUDING THE PATIENT. Interpretation Summary * Name: MATHEW MANNING Study Date: 11/23/2016 07:10 AM BP: 130/63 mmHg * Patient Location: .2E\S\E207\S\1 HR: 75 * : 1930 (M/d/yyyy) Gender: Female Height: 59 in * Age: 86 yrs Ethnicity: [place] Weight: 162 lb * Ordering Physician: Tapan Arroyo * Referring Physician: Self, Referred * Performed By: Jaylyn Pierre RCS * * Reason For Study: CHEST PAIN * BSA: 1.7 m2 * Normal biventricular systolic function. * Mild left ventricular hypertrophy. * Left ventricular diastolic dysfunction. * Mild left atrial dilatation. * Mild aortic stenosis. * Trace mitral regurgitation. * Trace-mild tricuspid regurgitation. Procedure Details * A complete two-dimensional transthoracic echocardiogram was performed (2D, M-mode, Doppler and color flow Doppler). * The study was technically difficult. * A contrast injection of Definity was performed to improve assessment of LV function. * Contrast was injected into an intravenous site in the left arm. * One vial of Definity ultrasound contrast was diluted in normal saline to a total volume of 10 ml. A total of '2' ml of solution was administered during imaging. * Lot # [id number] of Definity utilized for procedure. * Expiration date 1 SEP 27. * The attending nurse who injected the contrast agent was MEMO MAGALLANES RN. Left Ventricle * The left ventricle is normal in size. * Mild concentric left ventricular hypertrophy except for more prominent thickening of the basal septum. * Left ventricular systolic function is normal. * Ejection Fraction = 60-65%. * A full diastolic examination was done with clinical findings of Class I diastolic dysfunction. * The left ventricular wall motion is normal. Right Ventricle * The right ventricle is normal in size and function. Atria * The left atrium is mildly dilated. * Right atrial size is normal. * No ASD detected; PFO is not assessed. Mitral Valve * There is moderate mitral annular calcification. * There is no mitral valve stenosis. * There is trace mitral regurgitation. Tricuspid Valve * The tricuspid valve is not well visualized, but is grossly normal. * There is no tricuspid stenosis. * Trace - mild tricuspid regurgitation. * Right ventricular systolic pressure is elevated at 30-40mmHg. Aortic Valve * The aortic valve is trileaflet. * Mild valvular aortic stenosis. * Aortic valve area was calculated at 1.5 cm\S\2 using the continuity equation. * No aortic regurgitation is present. Pulmonic Valve * The pulmonic valve is not well visualized. * The pulmonary valve is inadequately visualized, but the Doppler data is adequate for interpretation. * There is no pulmonic valvular stenosis. * There is no significant pulmonary regurgitation. Great Vessels * The aortic root is normal size. Pericardium/Pleural * There is no pericardial effusion. Great Vessels * Normal inferior vena cava diameter and respiratory variation suggests normal central venous pressure. MMode 2D Measurements and Calculations IVSd 1.3 cm IVSs 1.4 cm LVIDd 3.9 cm LVIDs 2.6 cm LVPWd 1.2 cm LVPWs 1.2 cm IVS/LVPW 1.1 FS 33.5 % EDV(Teich) 64.5 ml ESV(Teich) 23.9 ml EF(Teich) 62.9 % EDV(cubed) 57.7 ml ESV(cubed) 17.0 ml EF(cubed) 70.5 % % IVS thick 5.0 % % LVPW thick 2.3 % LV mass(C)d 165.9 grams LV mass(C)dI 98.4 grams/m\S\2 LV mass(C)s 100.2 grams LV mass(C)sI 59.4 grams/m\S\2 SV(Teich) 40.5 ml SI(Teich) 24.0 ml/m\S\2 SV(cubed) 40.7 ml SI(cubed) 24.1 ml/m\S\2 Ao root diam 2.9 cm Ao root area 6.7 cm\S\2 ACS 1.8 cm LA dimension 4.3 cm LA/Ao 1.5 LVOT diam 2.0 cm LVOT area 3.1 cm\S\2 Doppler Measurements and Calculations MV E max swati 100.8 cm/sec MV A max swati 133.7 cm/sec MV E/A 0.75 MV P1/2t max swati 104.8 cm/sec MV P1/2t 61.7 msec MVA(P1/2t) 3.6 cm\S\2 MV dec slope 497.2 cm/sec\S\2 MV dec time 0.22 sec Ao V2 max 133.0 cm/sec Ao max PG 7.1 mmHg Ao max PG (full) 5.3 mmHg MARYBETH(V,A) 1.5 cm\S\2 MARYBETH(V,D) 1.5 cm\S\2 LV V1 max PG 1.7 mmHg LV V1 max 65.8 cm/sec TR max swati 258.9 cm/sec
[2016-11-23] MEDS ORDERED: WARFARIN SOD 3 MG TAB PO SCH ×2 (16:00)
[2016-11-23] MEDS ORDERED: WARFARIN SOD 2 MG TAB PO ONE (16:30)
[2016-11-23] MEDS ORDERED: PRAVASTATIN SOD 40 MG TAB PO SCH (21:00)
[2016-11-23] MEDS ORDERED: IRBESARTAN 150 MG TAB PO SCH (21:00)
[2016-11-24 03:35] VITALS: BP_SYST 120; BP_SYST 170; BP_DIAS 64; PULSE 85; TEMP 36.4; O2SAT 100
[2016-11-24] MEDS: LABETALOL HCL IV 5 MG/ML 20ML IV PRN (04:20)
[2016-11-24 04:47] VITALS: BP 133/64
[2016-11-24 06:46] LABS: BUN/CREATININE RATIO 15.9 (10-20); CALCIUM 8.5 mg/dl (8.5-10.1); CREATININE 0.72 mg/dl (0.60-1.20); POTASSIUM 3.9 mmol/L (3.5-5.1)
[2016-11-24 07:11] VITALS: BP 137/59; PULSE 65; TEMP 36.5; O2SAT 97
--- NOTE | 2016-11-24 08:01 | Progress Note ---
Internal Med Progress Note Date of Service: Nov 24, 2016. Provider Documentation: SUBJECTIVE: Patient is seen and examine at bedside. States Headache has improved. Reports chronic dizziness which has not worsened. Denies any chest pain, SOB, palpitations, blurry vision, vertigo. Offers no other symptoms. BP is elevated overnight. OBJECTIVE: Vital Signs-as noted below Physical Exam: General Appearance:Moderately built and nourished, no apparent distress Head: normocephalic, Atraumatic Eyes: normal inspection, EOMI, PERRLA Neck: supple, Trachea midline Respiratory/Chest: Normal breath sounds, CTA Cardiovascular: S1, S2, No murmur Abdomen/GI:Soft, Non tender, Bowel sounds present Extremities/Musculoskelatal:normal inspection, Trace edema Neurologic/Psych:AAOX3, grossly no focal neurological deficits Skin: normal color, warm Lab data as noted below. ASSESSMENT & PLAN: CHRONIC RECURRENT HEADACHE H/o of chronic headache, chronic dizziness and chronic tinnitus with multiples MRI and CT head and Lumbar puncture done in the past Was evaluated at [facility] as well which was normal as per patient DD: Vestibular headache/ Mnire's disease/ Tension headache/Secondary to uncontrolled HTN Evaluated by multiple ENT physicians per patient and was told not have Mnire' s disease Denies to have further imaging during this admission but agreeable if Headache worsens Currently headache is much better Continue magnesium and riboflavin Tylenol PRN Follow with neurologist as outpatient: Has an appointment at [facility] () in 2 weeks ESR: 4 monitor HTN Uncontrolled, Likely situational Currently BP better Continue amlodipine and avapro Will increase amlodipine to 5mg daily Monitor BP On labetalol PRN P. AFIB Rate controlled, currently in sinus INR subtherapeutic:Resolved INR: 2.2 today Continue Coumadin CHEST DISCOMFORT Presented with self limiting burning sensation in her chest Troponin X2: negative EKG: PVCs on intial EKG, resolved on repeat ECHO:LV wall motion is normal Continue aspirin 81 mg Currently denies chest discomfort Plan for stress test as outpatient: Follows with cardiology Dyslipidemia Continue statin Elevated glucose A1C:pending LEFT CAROTID ARTERY DISEASE Stable DVT Px: On coumadin SCDs CODE STATUS: FULL CODE DISPOSITION: Plan to discharge home today Follow up with your Primary Care Physician in 1 week Follow up with your Neurologist in 2 weeks Follow up with your salon professional Dr. Portillo for stress test as outpatient as scheduled Seek immediate medical attention if your symptoms reoccur or worsen Get PT/INR check on 11/25/16 and follow up with your doctor for further coumadin dosage Your amlodipine has been increased from 2.5mg daily to 5mg daily. Your ECHO showed LV wall motion is normal. PROCEDURES: ECHO: * Normal biventricular systolic function. * Mild left ventricular hypertrophy. * Left ventricular diastolic dysfunction. * Mild left atrial dilatation. * Mild aortic stenosis. * Trace mitral regurgitation. * Trace-mild tricuspid regurgitation. Vital Signs: Date Time Temp Pulse Resp B/P Pulse Ox O2 Delivery O2 Flow Rate FiO2 11/24/16 07:11 36.5 65 20 137/59 97 Room Air 11/24/16 04:47 133/64 11/24/16 04:00 Room Air 11/24/16 03:35 36.4 85 18 170/64 100 Room Air 11/24/16 00:00 Room Air 11/23/16 23:15 36.4 74 18 139/47 95 Room Air 11/23/16 20:00 Room Air 11/23/16 19:11 36.6 72 19 117/57 96 Room Air 11/23/16 16:00 96 Room Air 11/23/16 14:52 36.7 66 19 106/48 98 Room Air 11/23/16 13:08 36.5 72 20 116/51 96 Room Air 11/23/16 12:00 96 Room Air Lab Results: Results Past 24 Hours Test 11/24/16 05:59 11/24/16 08:40 Range/Units Sodium Level 142 136-145 mmol/L Potassium Level 3.9 3.5-5.1 mmol/L Chloride Level 108 98-107 mmol/L Carbon Dioxide Level 26 21-32 mmol/L Anion Gap 8.0 3-11 mmol/L Blood Urea Nitrogen 11 7-18 mg/dl Creatinine 0.72 0.60-1.20 mg/dl Est Creatinine Clear Calc Drug Dose 48.2 ml/min Estimated GFR () 88.5 Estimated GFR (Non- 76.4 BUN/Creatinine Ratio 15.9 10-20 Random Glucose 86 70-99 mg/dl Calcium Level 8.5 8.5-10.1 mg/dl Prothrombin Time 24.8 9.0-12.0 SECONDS Prothromb Time International Ratio 2.2 0.9-1.1
[2016-11-24] MEDS: CHOLECALCIFEROL 1000 INTER.UNIT TAB PO SCH (08:16)
[2016-11-24] MEDS: MAGNESIUM OXIDE 400 MG TAB PO SCH (08:16)
[2016-11-24] MEDS: ASPIRIN 81 MG ECTAB PO SCH (08:16)
[2016-11-24] MEDS: FAMOTIDINE 20 MG TAB PO SCH (08:16)
[2016-11-24] MEDS: AMLODIPINE BESYLATE 5 MG TAB PO SCH (08:16)
[2016-11-24 08:17] LABS: ESTIMATED AVERAGE GLUCOSE 120 mg/dl; HA1C FLAG Normal (Normal)
[2016-11-24] MEDS ORDERED: AMLO2.5T PO (09:13)
--- NOTE | 2016-11-24 09:16 | Discharge Instructions ---
Discharge Instructions Date of Service Nov 24, 2016. Admission Reason for Admission: Burning Chest Pain, Headache Discharge Discharge Diagnosis / Problem: Hypertensive Urgency, Recurrent Headache Discharge Goals Goal(s): Decrease discomfort, Improve function Activity Recommendations Activity Limitations: resume your previous activity Exercise/Sports Limitations: as tolerated . Instructions / Follow-Up Instructions / Follow-Up Follow up with your Primary Care Physician in 1 week Follow up with your Neurologist in 2 weeks Follow up with your hoe worker Dr. Portillo for stress test as outpatient as scheduled Seek immediate medical attention if your symptoms reoccur or worsen Get PT/INR check on 11/25/16 and follow up with your doctor for further coumadin dosage Can continue home Coumadin dosage today Your amlodipine has been increased from 2.5mg daily to 5mg daily. Your ECHO showed LV wall motion is normal. Current Hospital Diet Patient's current hospital diet: Regular Diet, AHA Diet (Heart Healthy), Low Sodium Diet (2gm Na) Discharge Diet Recommended Diet: AHA Diet (Heart Healthy) Pending Studies Studies pending at discharge: no Laboratory Results Hemoglobin A1c Test 11/23/16 08:26 Range/Units Estimated Average Glucose 120 mg/dl Hemoglobin A1c 5.8 H 4.5-5.6 % Medical Emergencies . Who to Call and When: Medical Emergencies: If at any time you feel your situation is an emergency, please call 911 immediately. . Non-Emergent Contact Non-Emergency issues call your: Primary Care Provider, Hide Handler, Neurologist Call Non-Emergent contact if: you have a fever, your pain is not controlled, your pain is worsening, your pain is unusual for you, you have any medication questions . . "Provider Documentation" section prepared by Markel Roberto. VTE Core Measure Inpt VTE Proph given/why not?: Warfarin (Coumadin), SCD's
[2016-11-24 09:24] LABS: INR 2.2 (0.9-1.1); PROTHROMBIN TIME (PATIENT) 24.8 SECONDS (9.0-12.0)
--- NOTE | 2016-11-24 09:32 | Discharge Summary ---
Discharge Summary Date of Service Nov 24, 2016. Discharge Summary Admission Date: Nov 22, 2016 at 23:37 Discharge Date: Nov 24, 2016 Discharge Disposition: Home Principal Diagnosis: Hypertensive Urgency, Recurrent Headache Procedures: ECHO: * Normal biventricular systolic function. * Mild left ventricular hypertrophy. * Left ventricular diastolic dysfunction. * Mild left atrial dilatation. * Mild aortic stenosis. * Trace mitral regurgitation. * Trace-mild tricuspid regurgitation. Pending Studies/Follow-Up: Follow up with your Primary Care Physician in 1 week Follow up with your Neurologist in 2 weeks Follow up with your port engineer Dr. Portillo for stress test as outpatient as scheduled Seek immediate medical attention if your symptoms reoccur or worsen Get PT/INR check on 11/25/16 and follow up with your doctor for further coumadin dosage Can continue home Coumadin dosage today Your amlodipine has been increased from 2.5mg daily to 5mg daily. Your ECHO showed LV wall motion is normal. Medication Reconciliation Changed Medications: Amlodipine (Norvasc) 2.5 Mg Tab 5 MG PO DAILY for 30 Days, #60 TAB (Changed from: 2.5 MG) Continued Medications: Aspirin (Aspirin Ec) 81 Mg Tab 81 MG PO DAILY Cetirizine Hcl (Zyrtec) 10 Mg Tab 10 MG PO DAILY PRN for ALLERGIC REACTION, TAB Cholecalciferol (Vitamin D) 2,000 Unit Cap 2000 UNITS PO DAILY Famotidine (Pepcid) 40 Mg Tab 40 MG PO DAILY, TAB Irbesartan (Avapro) 150 Mg Tab 150 MG PO DAILY, TAB Lorazepam (Ativan) 0.5 Mg Tab 0.5 MG PO HS PRN for Sleep, TAB Magnesium (Magnesium 250 mg) 1 Tab Tab 250 MG PO DAILY Multivitamins/Minerals (Mvi With Minerals) Tab 1 TAB PO DAILY, TAB Pravastatin Sodium (Pravachol) 40 Mg Tab 1 TAB PO DAILY for 90 Days, #90 TAB 3 Refills Riboflavin (B-2) 50 Mg Tab 1 TAB PO DAILY Warfarin Sodium (Coumadin) 2 Mg Tab 4 MG PO 3XWK, TAB TAKE THURSDAY, THURSDAY, THURSDAY Warfarin Sodium (Coumadin) 2 Mg Tab 3 MG PO 4XWK, TAB TAKE THURSDAY, THURSDAY, THURSDAY, THURSDAY Admission Information HPI (per Admitting provider): 86 year old female with PMH of Paroxysmal Afib on coumadin, CAD, Dyslipidemia, HTN, Carotid artery disease was brought to the ER by EMS with complaints of a headache that started earlier today. Pt is from [facility], she came to [place] for a golf tournament. She said that she played 36 holes of golf today. She said that later her headache got worst. she describes the headache like a pressure located in her frontal area. grade 7/10. she said that she does have a history of headache and she follow with neurology. she said that she had so many CT and MRI of the head done in the past that were negative. She does not want to get any more imaging of the head. She also feels a burning feeling across her chest area early today that resolved. Pt recently saw her PCP for the similar symptoms (pressure headache and chest discomfort) few days ago. She is scheduled for a nuclear stress test and an echo on the 12/02. When she came her blood pressure was elevated. Currently she denies any chest pain, palpitation, blurry vision and SOB. 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, no motor/sensory deficits, alert , normal mood/affect, oriented x 3 Skin: normal color, warm/dry, no rash Hospital Course CHRONIC RECURRENT HEADACHE H/o of chronic headache, chronic dizziness and chronic tinnitus with multiples MRI and CT head and Lumbar puncture done in the past Was evaluated at [facility] as well which was normal as per patient DD: Vestibular headache/ Mnire's disease/ Tension headache/Secondary to uncontrolled HTN Evaluated by multiple ENT physicians per patient and was told not have Mnire' s disease Denies to have further imaging during this admission but agreeable if Headache worsens Currently headache is much better Continue magnesium and riboflavin Tylenol PRN Follow with neurologist as outpatient: Has an appointment at [facility] () in 2 weeks ESR: 4 monitor HTN Uncontrolled, Likely situational Currently BP better Continue amlodipine and avapro Will increase amlodipine to 5mg daily Monitor BP On labetalol PRN P. AFIB Rate controlled, currently in sinus INR subtherapeutic:Resolved INR: 2.2 today Continue Coumadin CHEST DISCOMFORT Presented with self limiting burning sensation in her chest Troponin X2: negative EKG: PVCs on intial EKG, resolved on repeat ECHO:LV wall motion is normal Continue aspirin 81 mg Currently denies chest discomfort Plan for stress test as outpatient: Follows with cardiology Dyslipidemia Continue statin Elevated glucose A1C:pending LEFT CAROTID ARTERY DISEASE Stable DVT Px: On coumadin SCDs CODE STATUS: FULL CODE DISPOSITION: Plan to discharge home today Follow up with your Primary Care Physician in 1 week Follow up with your Neurologist in 2 weeks Follow up with your port engineer Dr. Portillo for stress test as outpatient as scheduled Seek immediate medical attention if your symptoms reoccur or worsen Get PT/INR check on 11/25/16 and follow up with your doctor for further coumadin dosage Your amlodipine has been increased from 2.5mg daily to 5mg daily. Your ECHO showed LV wall motion is normal. PROCEDURES: ECHO: * Normal biventricular systolic function. * Mild left ventricular hypertrophy. * Left ventricular diastolic dysfunction. * Mild left atrial dilatation. * Mild aortic stenosis. * Trace mitral regurgitation. * Trace-mild tricuspid regurgitation. Total time spent on discharge = 35 minutes This includes examination of the patient, discharge planning, medication reconciliation, and communication with other providers. Discharge Instructions Discharge Instructions Date of Service Nov 24, 2016. Admission Reason for Admission: Burning Chest Pain, Headache Discharge Discharge Diagnosis / Problem: Hypertensive Urgency, Recurrent Headache Discharge Goals Goal(s): Decrease discomfort, Improve function Activity Recommendations Activity Limitations: resume your previous activity Exercise/Sports Limitations: as tolerated . Instructions / Follow-Up Instructions / Follow-Up Follow up with your Primary Care Physician in 1 week Follow up with your Neurologist in 2 weeks Follow up with your port engineer Dr. Portillo for stress test as outpatient as scheduled Seek immediate medical attention if your symptoms reoccur or worsen Get PT/INR check on 11/25/16 and follow up with your doctor for further coumadin dosage Can continue home Coumadin dosage today Your amlodipine has been increased from 2.5mg daily to 5mg daily. Your ECHO showed LV wall motion is normal. Current Hospital Diet Patient's current hospital diet: Regular Diet, AHA Diet (Heart Healthy), Low Sodium Diet (2gm Na) Discharge Diet Recommended Diet: AHA Diet (Heart Healthy) Pending Studies Studies pending at discharge: no Laboratory Results Hemoglobin A1c Test 11/23/16 08:26 Range/Units Estimated Average Glucose 120 mg/dl Hemoglobin A1c 5.8 H 4.5-5.6 % Medical Emergencies . Who to Call and When: Medical Emergencies: If at any time you feel your situation is an emergency, please call 911 immediately. . Non-Emergent Contact Non-Emergency issues call your: Primary Care Provider, Solar Panel Installation Supervisor, Neurologist Call Non-Emergent contact if: you have a fever, your pain is not controlled, your pain is worsening, your pain is unusual for you, you have any medication questions . . "Provider Documentation" section prepared by Markel Roberto. VTE Core Measure Inpt VTE Proph given/why not?: Warfarin (Coumadin), SCD's
[2016-11-24 09:48] VITALS: BP 137/59; PULSE 65; TEMP 36.5; O2SAT 97
[2016-11-24] MEDS ORDERED: WARFARIN SOD 4 MG TAB PO SCH (16:00)
== END 2016-11-24 10:46 | disposition home or self-care (01) ==
LOC: ENRESERVTM → ENRESERVDT → C.EDA 21:05 → C.2E 23:37
PROVIDERS: ADMIT Internal Medicine; ATTEND Internal Medicine
DX: I10 Essential (primary) hypertension (principal); R51 Headache; I48.0 Paroxysmal atrial fibrillation; I25.10 Atherosclerotic heart disease of native coronary artery without angina pectoris; E78.5 Hyperlipidemia, unspecified; K21.9 Gastro-esophageal reflux disease without esophagitis; Z79.82 Long term (current) use of aspirin; Z79.01 Long term (current) use of anticoagulants; Z79.899 Other long term (current) drug therapy